=== PATIENT | female | born 1985 | race Caucasian/White ===

== ENCOUNTER 2019-03-17 12:07 | Emergency (ER) | payer SELFPAY ==
--- NOTE | 2019-03-17 12:31 | ED.PDOC ---
History of Present Illness - General Chief Complaint: Allergic Reaction Time Seen by Provider: 03/17/19 12:29 Source: patient, EMS Exam Limitations: no limitations - History of Present Illness Initial Comments: patient comes in today for allergic reaction. Patient states last night she got bit by fire ants and again this morning when they were out camping. However, she has had this happen before and they've never caused an acute reaction. Today while she was actually in the car driving her son she suddenly started noticing that she was having hives and then she became short of breath and felt lightheaded. Patient states she currently feels fine right now. Patient has never had a reaction before and did not have any new lotions, soaps, detergents, or new by mouth intake. She is otherwise healthy and denies any other acute complaints.atient states she was given Benadryl via EMS prior to arrival 25 mg IV and since then she states that she's progressively improved. Currently she has no shortness of breath or wheezing and denies any weakness or altered LOC. Timing/Duration: 1/2 hour Severity: moderate Improving Factors: medication Worsening Factors: nothing Associated Symptoms: shortness of breath, weakness Allergies/Adverse Reactions: Allergies NO KNOWN ALLERGY Allergy (Verified 03/17/19 13:01) Home Medications: Ambulatory Orders NK 03/17/19 Review of Systems - Review of Systems Constitutional: States: other - dizziness EENTM: States: no symptoms reported. Denies: eye pain, ear pain, nose pain, throat pain Respiratory: States: short of breath. Denies: cough, wheezing Cardiology: States: no symptoms reported. Denies: chest pain, edema, palpitations Gastrointestinal/Abdominal: States: no symptoms reported. Denies: abdominal pain, diarrhea, nausea, vomiting Skin: States: see HPI Family Medical History - Family History Mother Family History: No Known Physical Exam - Physical Exam General Appearance: Alert, Comfortable, No apparent distress Eye Exam: bilateral normal Ears, Nose, Throat: hearing grossly normal, normal ENT inspection, normal pharynx Neck: non-tender, full range of motion, supple, normal inspection Respiratory: chest non-tender, lungs clear, normal breath sounds, no respiratory distress, no accessory muscle use Cardiovascular/Chest: normal peripheral pulses, regular rate, rhythm, no edema, no gallop, no JVD, no murmur Peripheral Pulses: radial,right: 2+, radial,left: 2+ Gastrointestinal/Abdominal: normal bowel sounds, non tender, soft Extremity: normal range of motion, non-tender, other - approximate half a dozen fire and some bilateral feet with some slight erythema and edema Neurologic: alert, oriented x 3 Skin Exam: normal color, rash - blanchable urticaria of her back and bilateral upper extremities Progress - Progress Progress: patient has a monitored for an hour with no worsening symptoms. Patient states she feels much better at this time has the rash but no other symptoms including no shortness of breath or wheezing. We have let her know that reactions can come back and she should aches and Benadryl for the next couple days. Return to ER for shortness of breath, wheezing, worsening symptoms. [id number] Benadryl 4 times a day 2 days and then as necessary 03/17/19 13:04 Departure - Departure Clinical Impression: Urticaria Disposition: Discharge to Home or Self Care Condition: Good Departure Forms: ED Discharge - Pt. Copy, Patient Portal Self Enrollment Instructions: DI for Allergic Rhinitis Home Medications: Ambulatory Orders NK 03/17/19 Additional Instructions: Return to ER for shortness of breath, wheezing, worsening symptoms. [id number] Benadryl 4 times a day 2 days and then as necessary
[2019-03-17 13:04] VITALS: TEMP 99.3
[2019-03-17 13:17] VITALS: BP 122/76; O2SAT 97
== END 2019-03-17 13:15 | disposition home or self-care (01) ==
LOC: ER 12:15
DX: T63.421A Toxic effect of venom of ants, accidental (unintentional), initial encounter (principal); Y92.833 Campsite as the place of occurrence of the external cause